=== PATIENT | male | born 1980 | race Caucasian/White ===

== ENCOUNTER → 2024-03-20 09:58 | Outpatient (REF) | payer OTHER, SELFPAY | LOC: RAD 09:58 | PROVIDERS: ATTENDING PHYSICIAN Family Medicine | DX: J40 Bronchitis, not specified as acute or chronic (principal); J01.00 Acute maxillary sinusitis, unspecified | CPT/HCPCS: 70486; 71046 ==

== ENCOUNTER → 2024-08-18 10:00 | Outpatient (REF) | payer OTHER, SELFPAY | LOC: CLAB 10:00 | PROVIDERS: ATTENDING PHYSICIAN Otolaryngology | DX: J34.3 Hypertrophy of nasal turbinates (principal); J32.9 Chronic sinusitis, unspecified | CPT/HCPCS: 88304; 88311 ==